=== PATIENT | male | born 1945 | race Caucasian/White ===

== ENCOUNTER 2020-12-28 12:27 | Outpatient (CLI) | payer OTHER, SELFPAY ==
[2020-12-28 13:21] LABS: Basophils % 0.3 %; Eosinophils # 0.3 10^3/uL (0.0-0.8); Eosinophils % 2.6 %; Hematocrit 44.4 % (42.0-52.0); Hemoglobin 14.9 g/dL (11.7-16.6); Lymphocytes # 2.2 10^3/uL (0.8-4.8); Lymphocytes % 22.2 %; Mean Corpuscular HGB Conc 33.6 g/dL (30.0-36.0); Mean Corpuscular Hemoglobin 31.2 pg (28.0-34.0); Mean Corpuscular Volume 92.9 fL (80-94); Mean Platelet Volume 10.2 fL (7.4-10.4); Monocytes # 0.8 10^3/uL (0.2-0.9); Monocytes % 7.8 %; Neutrophils # 6.68 10^3/uL (1.8-7.7); Neutrophils % 66.8 %; Nucleated Red Blood Cells % 0 %; Platelet Count 262 10^3/cmm (130-400); Red Blood Count 4.78 10^6/uL (4.1-5.3); Red Cell Distribution Width 11.9 % (12.1-15.1)
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
== END 2020-12-28 12:28 | disposition home or self-care (01) ==
PROVIDERS: PCP Nurse Practitioner; Visit Provider Internal Medicine Hematology & Oncology
DX: R79.89 Other specified abnormal findings of blood chemistry (principal); R63.4 Abnormal weight loss; J43.9 Emphysema, unspecified; F17.210 Nicotine dependence, cigarettes, uncomplicated; Z79.899 Other long term (current) drug therapy
CPT/HCPCS: 36415; 85025; 99204

== ENCOUNTER 2021-02-06 13:56 | Outpatient (CLI) | payer OTHER, SELFPAY ==
[2021-02-06 14:46] LABS: Basophils % 0.3 %; Eosinophils # 0.3 10^3/uL (0.0-0.8); Mean Platelet Volume 10.2 fL (7.4-10.4); Monocytes # 0.9 10^3/uL (0.2-0.9); Nucleated Red Blood Cells % 0 %; White Blood Count 10.1 10^3/uL (4.0-10.0)
[2021-02-06 15:32] LABS: Ferritin 830 ng/mL (30-400); Iron 42 ug/dL (59-158); Percent Saturation 22.5 % (20-50); Total Iron Binding Capacity 186 mcg/dl; Unsaturated Iron Binding 144 ug/dL (112-347)
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
[2021-02-06 17:13] LABS: C Reactive Protein 21.1 mg/L (0.0-4.9)
[2021-02-06 17:25] LABS: Hematocrit 39.1 % (42.0-52.0); Hemoglobin 13.3 g/dL (11.7-16.6); Lymphocytes # 2.4 10^3/uL (0.8-4.8); Lymphocytes % 23.3 %; Mean Corpuscular Hemoglobin 31.1 pg (28.0-34.0); Mean Corpuscular Volume 91.6 fL (80-94); Neutrophils # 6.46 10^3/uL (1.8-7.7); Neutrophils % 64.1 %; Platelet Count 233 10^3/cmm (130-400); Red Blood Count 4.27 10^6/uL (4.1-5.3)
[2021-02-06 19:17] LABS: Erythrocyte Sedimentation Rate 17 mm/hr (0-10)
== END 2021-02-06 13:57 | disposition home or self-care (01) ==
LOC: ONCMED 13:58
PROVIDERS: PCP Nurse Practitioner; Visit Provider Internal Medicine Hematology & Oncology
DX: D50.9 Iron deficiency anemia, unspecified (principal); R63.4 Abnormal weight loss; J43.9 Emphysema, unspecified; F17.210 Nicotine dependence, cigarettes, uncomplicated; Z79.899 Other long term (current) drug therapy
CPT/HCPCS: 82728; 83540; 83550; 85025; 85651; 86140; 99214

== ENCOUNTER 2021-03-06 13:20 | Outpatient (CLI) | payer OTHER, SELFPAY ==
[2021-03-06 14:18] LABS: C Reactive Protein 1.2 mg/L (0.0-4.9)
[2021-03-06 15:08] LABS: Erythrocyte Sedimentation Rate 9 mm/hr (0-10)
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
== END 2021-03-06 13:21 | disposition home or self-care (01) ==
PROVIDERS: PCP Nurse Practitioner; Visit Provider Internal Medicine Hematology & Oncology
DX: D50.9 Iron deficiency anemia, unspecified (principal); R63.4 Abnormal weight loss; J43.9 Emphysema, unspecified; F17.210 Nicotine dependence, cigarettes, uncomplicated; Z87.828 Personal history of other (healed) physical injury and trauma; Z79.899 Other long term (current) drug therapy
CPT/HCPCS: 36415; 81256; 85651; 86140; 99214

== ENCOUNTER 2021-05-01 11:08 | Outpatient (CLI) | payer OTHER, SELFPAY ==
[2021-05-01 12:08] LABS: Basophils % 0.4 %; Eosinophils # 0.4 10^3/uL (0.0-0.8); Eosinophils % 5.2 %; Hematocrit 40.9 % (42.0-52.0); Hemoglobin 13.8 g/dL (11.7-16.6); Lymphocytes # 1.8 10^3/uL (0.8-4.8); Lymphocytes % 22.7 %; Mean Corpuscular HGB Conc 33.7 g/dL (30.0-36.0); Mean Corpuscular Hemoglobin 31.7 pg (28.0-34.0); Mean Corpuscular Volume 93.8 fl (80-94); Monocytes # 0.6 10^3/uL (0.2-0.9); Monocytes % 8.2 %; Neutrophils # 4.96 10^3/uL (1.8-7.7); Neutrophils % 63.2 %; Nucleated Red Blood Cells % 0 %; Platelet Count 227 10^3/cmm (130-400); Red Blood Count 4.36 10^6/uL (4.1-5.3); White Blood Count 7.8 10^3/uL (4.0-10.0)
[2021-05-01 12:36] LABS: Alanine Aminotransferase 11 U/L (0-41); Albumin Level 4.1 g/dL (3.5-5.2); Alkaline Phosphatase 90 IU/L (40-130); Anion Gap 12.4 (5-19); Aspartate Amino Transferase 18 U/L (0-40); Blood Urea Nitrogen 9 mg/dL (8-23); C Reactive Protein 0.7 mg/L (0.0-4.9); Calcium 8.9 mg/dL (8.5-10.5); Carbon Dioxide 28 mmol/L (22-29); Chloride 105 mmol/L (98-107); Ferritin 907 ng/mL (30-400); Globulin 2.5 g/dL (1.3-4.6); Glucose 104 mg/dL (65-115); Iron 104 ug/dL (59-158); Osmolality Calculated 291 mOsm/kg (285-295); Percent Saturation 56.8 % (20-50); Potassium 4.4 mmol/L (3.5-5.1); Sodium 141 mmol/L (136-145); Total Bilirubin 0.3 mg/dL (0.15-1.2); Total Iron Binding Capacity 183 mcg/dl; Total Protein 6.6 g/dL (6.6-8.7); Unsaturated Iron Binding 79 ug/dL (112-347)
[2021-05-01 13:29] LABS: Erythrocyte Sedimentation Rate 9 mm/hr (0-10)
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
== END 2021-05-01 11:09 | disposition home or self-care (01) ==
LOC: ONCMED 11:11
PROVIDERS: PCP Nurse Practitioner; Visit Provider Internal Medicine Hematology & Oncology
DX: R78.89 Finding of other specified substances, not normally found in blood (principal); R79.0 Abnormal level of blood mineral; R63.4 Abnormal weight loss; J43.9 Emphysema, unspecified; F17.210 Nicotine dependence, cigarettes, uncomplicated; Z79.899 Other long term (current) drug therapy
CPT/HCPCS: 36415; 80053; 82728; 83540; 83550; 85025; 85651; 86140; 99214

== ENCOUNTER 2023-01-30 11:08 | Emergency (ER) | payer OTHER, SELFPAY ==
[2023-01-30] VITALS (8 sets, daily range): BP systolic 89–130; BP diastolic 51–96; PULSE 69–88; RESP 10–25; TEMP 36.4; O2SAT 90–100; BMI 14.0
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
[2023-01-30 12:41] LABS: Basophils % 0.1 %; Hematocrit 39.1 % (42.0-52.0); Hemoglobin 12.9 g/dL (11.7-16.6); Lymphocytes # 0.8 10^3/uL (0.8-4.8); Lymphocytes % 8.5 %; Mean Corpuscular Hemoglobin 31.7 pg (28.0-34.0); Mean Corpuscular Volume 96.1 fl (80-94); Mean Platelet Volume 9.8 fL (7.4-10.4); Monocytes # 0.6 10^3/uL (0.2-0.9); Monocytes % 5.7 %; Neutrophils # 8.25 10^3/uL (1.8-7.7); Neutrophils % 85.2 %; Nucleated Red Blood Cells % 0 %; Platelet Count 206 10^3/cmm (130-400); Red Blood Count 4.07 10^6/uL (4.1-5.3); Red Cell Distribution Width 12.3 % (12.1-15.1); White Blood Count 9.7 10^3/uL (4.0-10.0)
[2023-01-30 13:01] LABS: Lactic Sepsis W/Reflex 1.6 mmol/L (0.5-2.2)
[2023-01-30] MEDS: sodium chloride 0.9% 1,000 ML 999 ML IV (13:09)
[2023-01-30 13:12] LABS: NT Pro B Type Natriuretic Pept 9657 pg/mL (0-450); Procalcitonin 0.31 ng/mL (0-0.5)
[2023-01-30 13:25] LABS: Alanine Aminotransferase 19 U/L (0-41); Albumin Level 2.4 g/dL (3.5-5.2); Alkaline Phosphatase 129 U/L (40-130); Aspartate Amino Transferase 41 U/L (0-40); Blood Urea Nitrogen 25 mg/dL (8-23); C Reactive Protein 124.4 mg/L (0.0-4.9); Calcium 8.2 mg/dL (8.5-10.5); Carbon Dioxide 31 mmol/L (22-29); Chloride 99 mmol/L (98-107); Globulin 3.6 g/dL (1.3-4.6); Glucose 96 mg/dL (65-115); Osmolality Calculated 292 mOsm/kg (285-295); Sodium 139 mmol/L (136-145); Total Bilirubin 0.5 mg/dL (0.15-1.2)
[2023-01-30 13:32] LABS: Anion Gap 12.9 (5-19); Potassium 3.9 mmol/L (3.5-5.1)
[2023-01-30] MEDS: FUROsemide 10 mg/mL SDV 4mL 40 MG IVP (16:15)
[2023-01-30 17:53] LABS: Add Urine Microscopic? YES; Bilirubin Urine Neg (Negative); Blood Urine Neg (Negative); Glucose Urine UA Norm (Normal); Ketones Urine Negative (Negative); Leukocyte Esterase Urine Negative (Negative); Nitrate Urine Negative (Negative); Protein Urine Trace (Negative); Urine Appearance Clear (CLEAR); Urine Color Yellow (Yellow); Urobilinogen Urine Norm (Negative); pH Urine 5 (5-7)
[2023-01-30 18:10] LABS: Amphetamines Screen Urine Negative (Negative); Barbiturates Screen Urine Negative (Negative); Benzodiazepines Screen Urine Negative (Negative); Cocaine Screen Urine Negative (Negative); Opiate Screen Urine Negative (Negative); PCP Screen Urine Negative (Negative); THC Screen Urine Negative (Negative)
[2023-01-30 18:19] LABS: RBC Urine RARE /hpf (0-2); Squamous Epithelial Cell Urine RARE /hpf (0-5); WBC Urine RARE /hpf (0-5)
[2023-01-30 18:20] LABS: Add Urine Culture? No; Amorphous Sediment Urine 1+ /hpf; Bacteria Urine TRACE /hpf; Mucus Urine TRACE /hpf
[2023-01-30] MEDS: piperacillin-tazobactam 4.5 GM in sodium chloride 0.9% (plus) 50 ML IV (18:42)
--- NOTE | 2023-01-31 08:28 | DCPLANNER ---
advertising project manager had message to schedule a follow up appointment for patient with wound care. advertising project manager sent patients information to the front office staff at wound care. Patients information will be printed and reviewed. Clinic will call patient with appointment information.
== END 2023-01-30 19:44 | disposition home or self-care (01) ==
PROVIDERS: Emergency Provider Emergency Medicine; PCP Nurse Practitioner
DX: L03.115 Cellulitis of right lower limb (principal); Z91.148 Patient's other noncompliance with medication regimen for other reason
CPT/HCPCS: 36415; 71045; 80053; 80306; 81001; 83605; 83880; 84145; 85025; 86140; 87040; 87070; 87077; 87186; 96361; 96374; 96375; 99284; J1940; J2543; J7030